=== PATIENT | female | born 1985 | race Hispanic/Latino ===

== ENCOUNTER 2018-03-01 13:35 | Outpatient (CLI) | payer MEDICARE, MEDICAID ==
--- NOTE | 2018-03-01 17:32 | ULT ---
ULTRASOUND LEFT UPPER ARM: 03/01/18 HISTORY: Pain. COMPARISON: None. FINDINGS: No abnormal mass or soft tissue collection seen in the upper arm. IMPRESSION: No abnormality seen in the upper arm. MRI could be obtained for more detailed interrogation of the up per arm. POS: [facility]
--- NOTE | 2018-03-01 17:40 | RAD ---
TWO VIEWS LEFT HUMERUS: DATE: 03/01/2018. HISTORY: Left arm pain. Injury of muscle. FINDINGS: No fracture or dislocation is seen involving the left humerus. No lytic or sclerotic lesions are see n. IMPRESSION: No acute osseous abnormality involving the left humerus. POS: [facility]
== END 2018-03-01 13:36 | disposition home or self-care (01) ==
LOC: BICULT 13:35
PROVIDERS: ATTEND Specialist
DX: M79.622 Pain in left upper arm (principal)
CPT/HCPCS: 76999

== ENCOUNTER 2018-10-13 03:21 | Emergency (ER) | payer MEDICARE, OTHER ==
[2018-10-13] MEDS ORDERED: Ketorolac Tromethamine 30 MG/ML VIAL ONE (03:32)
[2018-10-13 03:38] LABS: #Lymphocytes 2.3 thou/uL (1.20-3.40); #Monocytes 0.5 thou/uL (0.11-0.59); #Neutrophils 3.4 thou/uL (1.40-6.50); %Basophils 0.5 % (0.0-1.0); %Eosinophils 0.2 % (0.0-10.0); %Lymphocytes 37.3 % (21.0-51.0); %Monocytes 7.2 % (0.0-10.0); %Neutrophils 54.7 % (42.0-75.0); Hemoglobin 14.1 g/dL (12.0-16.0); Mean Corpuscular Hemoglobin 30.1 pg (27.0-31.0); Mean Corpuscular Volume 91.5 fL (78.0-98.0); Mean Platelet Volume 7.6 fL (7.4-10.4); Platelet Count 200 thou/uL (130-400); RBC Distribution Width 12.2 % (11.5-14.5); Red Blood Cell (RBC) Count 4.67 mill/uL (4.20-5.40); White Blood Cell (WBC) Count 6.2 thou/uL (4.8-10.8)
[2018-10-13 03:58] LABS: ALT (SGPT) 72 U/L (8-55); AST (SGOT) 79 U/L (5-34); Albumin 4.1 g/dL (3.5-5.0); Alkaline Phosphatase 88 U/L (40-150); Anion Gap 15 mmol/L (10-20); BUN (Urea Nitrogen) Less than 4 mg/dL (7.0-18.7); Bilirubin, Total 0.5 mg/dL (0.2-1.2); Calc. Creatinine Clearance 0 mL/min (70-130); Calcium 9.4 mg/dL (7.8-10.44); Carbon Dioxide 24 mmol/L (22-29); Chloride 100 mmol/L (98-107); Estimated GFR-MDRD 76; Globulin 2.8 g/dL (2.4-3.5); Glucose 227 mg/dL (70-105); Lipase 48 U/L (8-78); Potassium 3.6 mmol/L (3.5-5.1); Protein, Total 6.9 g/dL (6.0-8.3); Sodium 135 mmol/L (136-145)
--- NOTE | 2018-10-13 08:35 | RAD ---
PORTABLE CHEST: HISTORY: Chest pain. FINDINGS: Lungs are clear. Heart and mediastinum appear normal. Vasculature normal. IMPRESSION: Negative portable chest. POS: OFF
[2018-10-13] MEDS ORDERED: Iopamidol 370 76% 100 ML VIAL ONE (11:09)
--- NOTE | 2018-10-14 13:29 | CT ---
PRELIMINARY REPORT/[facility]/EMERGENTY AFTER-HOURS PROCEDURE CT Angiography Chest With Contrast EXAM DATE/TIME: 10/13/2018 4:09 AM CLINICAL HISTORY: 33 years old, female; Chest pain; Patient HX: Er 7. Elevated d-dimer; F32 presents to ED via EMS C/O chest tightness and L hand tightness TECHNIQUE: Imaging protocol: Axial computed tomographic angiography images of the chest with intravenous contras t using CT angiography protocol. 3D rendering: MIP reconstructed images were created and reviewed. COMPARISON: No relevant prior studies available. FINDINGS: Pulmonary arteries: Normal. No pulmonary emboli. Aorta: Normal. No aortic aneurysm. No aortic dissection. Lungs: Normal. No consolidation. No masses. Pleural space: Normal. No pneumothorax. No pleural effusion. Heart: Normal. No cardiomegaly. No pericardial effusion. Mediastinum: Esophagus is unremarkable. Liver: Hepatosplenomegaly. Lymph nodes: Unremarkable. No enlarged lymph nodes. Bones/joints: Unremarkable. No acute fracture. Soft tissues: Unremarkable. IMPRESSION: Hepatosplenomegaly. Thank you for allowing us to participate in the care of your patient. Dictated and Authenticated by: Huseyin Headley MD 10/13/2018 4:34 AM Central Time ([place] & [place]) FINAL REPORT CTA CHEST: No evidence of pulmonary embolus. No acute lung process. I am in agreement with the preliminary report. POS: OFF
== END 2018-10-13 05:11 | disposition home or self-care (01) ==
LOC: ERS 03:21
DX: M94.0 Chondrocostal junction syndrome [Tietze] (principal); R74.0 Nonspecific elevation of levels of transaminase and lactic acid dehydrogenase [LDH]
CPT/HCPCS: 36415; 71045; 71275; 80053; 83690; 84484; 85025; 85379; 93005; 96374; J1885; Q9967

== ENCOUNTER 2019-01-28 13:29 | Inpatient (IN) | payer MEDICARE, MEDICAID ==
[2019-01-28] MEDS ORDERED: Ondansetron PF 4 MG/2 ML Vial ONE (13:57)
[2019-01-28 14:29] LABS: #Lymphocytes 0.9 thou/uL (1.20-3.40); #Monocytes 0.8 thou/uL (0.11-0.59); #Neutrophils 8.6 thou/uL (1.40-6.50); %Basophils 0.1 % (0.0-1.0); %Eosinophils 0.1 % (0.0-10.0); %Lymphocytes 8.7 % (21.0-51.0); %Neutrophils 83.1 % (42.0-75.0); Hemoglobin 12.5 g/dL (12.0-16.0); Mean Corpuscular HGB CONC 32.3 g/dL (32.0-36.0); Mean Corpuscular Hemoglobin 28.7 pg (27.0-31.0); Mean Corpuscular Volume 88.9 fL (78.0-98.0); Mean Platelet Volume 8.6 fL (7.4-10.4); Platelet Count 153 thou/uL (130-400); RBC Distribution Width 12.9 % (11.5-14.5); Red Blood Cell (RBC) Count 4.36 mill/uL (4.20-5.40); White Blood Cell (WBC) Count 10.4 thou/uL (4.8-10.8)
[2019-01-28 14:41] LABS: Pregnancy Test - Urine (BHCG) Negative (Negative); Specific Gravity 1.035 (1.002-1.036)
[2019-01-28 14:42] LABS: Bacteria/HPF 1+ HPF (None Seen); Bilirubin Negative (Negative); Blood, Urine 1+ (Negative); Clarity Turbid (Clear); Glucose, Urine (Dipstick) Greater than 1000 mg/dL (Negative); Leukocyte 250 Leu/uL (Negative); Nitrite Negative (Negative); Pregu Control Background? CLEAR/WHITE (CLR/WHITE); Pregu Control Bar Appear? YES (CONTROL BAR); Protein, Urine (Dipstick) 200 mg/dL (Neg-Trace); Squamous Epithelial 21-50 HPF (0-3); Transitional Epithelial 0-3 HPF (None Seen); Urobilinogen 3 mg/dL (Less than 2); WBC/HPF 21-50 HPF (0-3)
[2019-01-28 14:52] LABS: ALT (SGPT) 22 U/L (8-55); AST (SGOT) 18 U/L (5-34); Albumin 3.9 g/dL (3.5-5.0); Alkaline Phosphatase 92 U/L (40-150); Anion Gap 18 mmol/L (10-20); BUN (Urea Nitrogen) 12 mg/dL (7.0-18.7); Bilirubin, Total 1.2 mg/dL (0.2-1.2); Calc. Creatinine Clearance 0 mL/min (70-130); Calcium 10.2 mg/dL (7.8-10.44); Carbon Dioxide 22 mmol/L (22-29); Chloride 88 mmol/L (98-107); Estimated GFR-MDRD 48; Globulin 3.7 g/dL (2.4-3.5); Glucose 488 mg/dL (70-105); Lipase 12 U/L (8-78); Potassium 3.5 mmol/L (3.5-5.1); Protein, Total 7.6 g/dL (6.0-8.3); Sodium 124 mmol/L (136-145)
[2019-01-28 14:57] LABS: BHCG - Serum Negative (NEGATIVE); Pregs Control Background? CLEAR/WHITE (CLR/WHITE); Pregs Control Bar Appear? YES (CONTROL BAR)
[2019-01-28] MEDS ORDERED: cefTRIAXone\\ROCEPHIN 2 GM VIAL ONE (14:57)
--- NOTE | 2019-01-28 15:10 | CT ---
EXAM: Abdomen and pelvic CT scan without contrast: HISTORY: Urinary tract infection abdominal pain COMPARISON: None FINDINGS: The visualized lung bases are clear. Liver: Hepatomegaly with fatty change.. Gallbladder:Status post cholecystectomy. No common duct or intrahepatic ductal dilatation. Pancreas:Unremarkable Spleen:Splenomegaly. Adrenal glands:Unremarkable. Kidneys:No renal calculus or acute obstruction. Fairly prominent left perirenal fat stranding without an obstructing calculus concerning for the poss ibility of acute pyelonephritis. No solid or cystic renal mass. No evidence for bowel obstruction. No CT evidence for acute appendicitis. The urinary bladder is unremarkable. Unremarkable No abscess, adenopathy, or abnormal fluid collection within the abdomen or pelvis. IMPRESSION: Left perirenal fat stranding evidence for acute pyelonephritis given lack of an obstructing calculus. Hepatosplenomegaly. Status post cholecystectomy.
[2019-01-28] MEDS ORDERED: Ibuprofen 200 MG TAB ONE (15:21)
[2019-01-28] MEDS ORDERED: Ondansetron PF 4 MG/2 ML Vial SLOW IVP PRN (17:47)
[2019-01-28] MEDS ORDERED: Dextrose 50% Abboject 50 ML SYRINGE IVP PRN (17:49)
[2019-01-28] MEDS ORDERED: Dextrose 5% in Water 1,000 ML IV PRN (17:49)
[2019-01-28] MEDS ORDERED: Insulin Glargine 30 UNITS in Pre-Filled Syringe SC SCH (18:00)
[2019-01-28 18:04] VITALS: BMI 36.3
[2019-01-28 18:31] LABS: Lactic Acid 1.7 mmol/L (0.5-2.2)
[2019-01-28] MEDS: Sodium Chloride 0.9% 1,000 ML IV SCH (18:52)
[2019-01-28] MEDS ORDERED: Melatonin 3 MG TAB PO PRN (20:38)
[2019-01-28] MEDS: Aripiprazole 15 MG TAB PO SCH (21:37)
[2019-01-28] MEDS: Phenazopyridine HCl 97.5 MG TABLET PO SCH (21:38)
[2019-01-28] MEDS: Insulin Regular 300 UNITS/3 ML VIAL SC PRN (21:38)
[2019-01-29] MEDS: Sodium Chloride 0.9% 1,000 ML IV SCH (02:46)
[2019-01-29] MEDS: Acetaminophen 325 MG TAB PO PRN ×2 (02:53→13:08)
[2019-01-29] MEDS: Insulin Regular 300 UNITS/3 ML VIAL SC PRN ×5 (05:53→22:25)
[2019-01-29 05:58] LABS: #Lymphocytes 0.8 thou/uL (1.20-3.40); #Monocytes 0.7 thou/uL (0.11-0.59); %Basophils 0.3 % (0.0-1.0); %Lymphocytes 10.6 % (21.0-51.0); %Monocytes 9.6 % (0.0-10.0); %Neutrophils 79.4 % (42.0-75.0); Hemoglobin 11.3 g/dL (12.0-16.0); Mean Corpuscular HGB CONC 34.1 g/dL (32.0-36.0); Mean Corpuscular Hemoglobin 29.9 pg (27.0-31.0); Mean Corpuscular Volume 87.7 fL (78.0-98.0); Mean Platelet Volume 8.5 fL (7.4-10.4); Platelet Count 124 thou/uL (130-400); RBC Distribution Width 12.6 % (11.5-14.5); White Blood Cell (WBC) Count 7.5 thou/uL (4.8-10.8)
[2019-01-29 06:01] LABS: Hemoglobin A1c 11.3 % (4.0-6.0)
[2019-01-29 06:21] LABS: Anion Gap 11 mmol/L (10-20); BUN (Urea Nitrogen) 9 mg/dL (7.0-18.7); Calc. Creatinine Clearance 128 mL/min (70-130); Calcium 9.2 mg/dL (7.8-10.44); Carbon Dioxide 24 mmol/L (22-29); Chloride 97 mmol/L (98-107); Estimated GFR-MDRD 79; Glucose 280 mg/dL (70-105); Potassium 3.1 mmol/L (3.5-5.1); Sodium 129 mmol/L (136-145)
[2019-01-29] MEDS ORDERED: Milk Of Magnesia 30 ML UDCUP PO SCH (09:30)
[2019-01-29] MEDS ORDERED: Bisacodyl 10 MG SUPP PR SCH (09:30)
--- NOTE | 2019-01-29 09:51 | HP ---
CHIEF COMPLAINT ON ADMISSION: Left-sided pyelonephritis. HISTORY OF PRESENT ILLNESS: The patient is a 33-year-old female, who had been into Dr. Peguero' office just a week prior, who decided not to mention that she had burning frequency with her urination or that she had left-sided back pain, and states she kept it to herself because her education level is about third grade and her emotional development is also by like a third grade. She just did not want to bother me or bother the examiner, so that she ended up going to [facility], where they wanted to admit her, but she did not want to go into the hospital there, so she came to the emergency room at [facility], where she was noted to have left flank pain, tenderness, tachycardia, UTI by diagnosis. CT of the abdomen confirms pyelonephritis on the left and a blood sugar over 400. She denies vomiting, but she has had some fever and chills. She had taken some Cipro from [facility]. She also has nausea. She rates her pain at an 8/10, has been getting worse which is why she came to [facility] ER. She has urinary frequency, urgency, dysuria, and recently when she began to vomit that is when she decided to come to the ER. She has vomited twice. PAST MEDICAL HISTORY: As mentioned above is borderline retardation, hard of hearing, diabetes mellitus type 2, dyslipidemia, hypothyroid, generally noncompliant with her medical care. She has a prior history of bipolar or schizophrenic features. Attention deficit disorder. PAST SURGICAL HISTORY: Significant for right leg surgery and cholecystectomy. PSYCHIATRIC HISTORY: As mentioned above, bipolar disorder with schizophrenia and significant anxiety disorder. ALLERGIES: THE PATIENT HAS NO KNOWN DRUG ALLERGIES. MEDICATIONS: On admission, 1. Klonopin 1 mg b.i.d. 2. Vyvanse 70 mg daily. 3. Tramadol 50 mg p.r.n. pain. 4. Abilify 5 mg at bedtime. 5. Sertraline 50 mg at bedtime. 6. Levothyroxine 150 mcg (probably not taking correctly). 7. Wellbutrin 150 mg daily. 8. Janumet b.i.d. 9. Crestor 20 mg at bedtime and most recently ciprofloxacin 500 b.i.d. REVIEW OF SYSTEMS: At the time of admission, positive for fever, chills, nausea, vomiting. HEENT: No sores or lesions or drainage from the eyes, ears, nose, or throat. CARDIOVASCULAR: Denies chest pain, but has palpitations and tachycardia. RESPIRATORY: Denies cough or dyspnea. GI: Positive for nausea and vomiting. Denies diarrhea. : Admits to urinary frequency, dysuria, hesitancy, but denies blood in urine or stool. MUSCULOSKELETAL: Denies any significant muscle or back pain. SKIN: No new rashes or lesions. NEUROLOGIC: No change in mentation, hypesthesia, anesthesia. HEMOLYTIC/LYMPH: No signs of significant swelling or bruising. PHYSICAL EXAMINATION: VITAL SIGNS: At the time of admission, blood pressure 109/68, pulse 109, respirations 18, temperature 100.0, pain scale 8/10 with 96% of O2 saturation on room air. GENERAL: This is an obese Latin-[place] female, alert, oriented, and cooperative. HEENT: Normocephalic, atraumatic. Pupils are equal, round, and reactive to light. Extraocular muscles are intact. TMs, nares, and pharynx are clear. NECK: Supple. Trachea midline. BREASTS: Deferred. HEART: Regular rate and rhythm, tachycardic. CHEST: Clear to auscultation. ABDOMEN: Soft, generally tender suprapubically. No mass appreciated or hepatosplenomegaly. : Deferred. EXTREMITIES: Without clubbing, cyanosis, or edema. SKIN: Without acute rashes or lesions. NEUROLOGIC: Cranial nerves are intact. Mental status is that of a third grader. Alert and cooperative. Sensory exam is intact. Gait and cerebellar function are normal. LABORATORY DATA: On admission, CT of the abdomen and pelvis shows left-sided perinephric swelling and stranding significant for pyelonephritis. WBC is 10.4, hemoglobin 12.5, hematocrit 38.8, platelets 153. Sodium 129, potassium 3.1, chloride 97, CO2 of 24, BUN 9, creatinine 0.84 with a GFR of 79, and glucose on arrival of over 400, now it has gone down to 357. Her lactate on admission was 4.2. test negative. TSH greater than 18. ASSESSMENT: 1. Left pyelonephritis. 2. Slb-eeckfyl-yaulflfls diabetes, uncontrolled due to noncompliance and infection. 3. Hyponatremia. 4. Hypothyroidism (medication probably not taken correctly). PLAN: Plan will be IV fluids, IV antibiotics, pain management with serial re-evaluation. We will also begin diabetic education. Her hemoglobin A1c is 11.2, indicative of her noncompliance as an outpatient. Job ID: [id number]
[2019-01-29] MEDS: Potassium Chloride 20 MEQ TAB PO SCH ×2 (10:24→21:31)
[2019-01-29] MEDS: Docusate 100 MG CAP PO SCH ×2 (10:24→21:31)
[2019-01-29] MEDS: Buprenorphine 8mg/Naloxone 2mg per 1 FILM SL SCH (10:25)
[2019-01-29] MEDS: Phenazopyridine HCl 97.5 MG TABLET PO SCH ×3 (10:29→21:31)
[2019-01-29] MEDS: NS 0.9% w/ 20 MEQ KCL 1,000 ML IV SCH ×2 (11:33→21:30)
[2019-01-29] MEDS ORDERED: Ibuprofen 200 MG TAB PO PRN (16:10)
[2019-01-29] MEDS: metFORMIN 500 MG TAB PO SCH (17:01)
[2019-01-29] MEDS: Aripiprazole 15 MG TAB PO SCH (21:31)
[2019-01-30] MEDS: NS 0.9% w/ 20 MEQ KCL 1,000 ML IV SCH ×3 (02:48→14:59)
[2019-01-30 04:23] LABS: #Monocytes 0.7 thou/uL (0.11-0.59); #Neutrophils 4.3 thou/uL (1.40-6.50); %Basophils 0.2 % (0.0-1.0); %Lymphocytes 16.7 % (21.0-51.0); %Monocytes 11.6 % (0.0-10.0); %Neutrophils 71.4 % (42.0-75.0); Hemoglobin 10.6 g/dL (12.0-16.0); Mean Corpuscular HGB CONC 31.2 g/dL (32.0-36.0); Mean Corpuscular Hemoglobin 27.9 pg (27.0-31.0); Mean Corpuscular Volume 89.6 fL (78.0-98.0); Mean Platelet Volume 8.6 fL (7.4-10.4); Platelet Count 134 thou/uL (130-400); RBC Distribution Width 12.7 % (11.5-14.5); White Blood Cell (WBC) Count 6.1 thou/uL (4.8-10.8)
[2019-01-30 04:45] LABS: Anion Gap 13 mmol/L (10-20); BUN (Urea Nitrogen) 9 mg/dL (7.0-18.7); Calc. Creatinine Clearance 142 mL/min (70-130); Calcium 8.7 mg/dL (7.8-10.44); Carbon Dioxide 20 mmol/L (22-29); Chloride 104 mmol/L (98-107); Estimated GFR-MDRD 88; Glucose 247 mg/dL (70-105); Potassium 3.7 mmol/L (3.5-5.1); Sodium 133 mmol/L (136-145)
[2019-01-30] MEDS: Levothyroxine 150 MCG TAB PO SCH (06:24)
[2019-01-30] MEDS: Insulin Regular 300 UNITS/3 ML VIAL SC PRN ×3 (06:29→18:01)
[2019-01-30] MEDS ORDERED: Bupropion 150 MG XL TAB PO SCH (09:00)
[2019-01-30] MEDS: metFORMIN 500 MG TAB PO SCH ×2 (09:22→17:49)
[2019-01-30] MEDS: Docusate 100 MG CAP PO SCH ×2 (09:23→21:56)
[2019-01-30] MEDS: Phenazopyridine HCl 97.5 MG TABLET PO SCH ×2 (09:23→14:59)
[2019-01-30] MEDS: Buprenorphine 8mg/Naloxone 2mg per 1 FILM SL SCH (09:24)
[2019-01-30] MEDS: Potassium Chloride 20 MEQ TAB PO SCH ×2 (10:32→21:56)
--- NOTE | 2019-01-30 14:49 | PQF ---
CLINICAL DOCUMENTATION IMPROVEMENT CLARIFICATION FORM: ICD-10 Updated PLEASE DO AN ADDENDUM TO THE PROGRESS NOTE WITH ANY DOCUMENTATION UPDATES OR ADDITIONS AND CARRY THROUGH TO DC SUMMARY. THANK YOU. DATE: 01/30/19 ATTN : DR. HAMPTON Please exercise your independent, professional judgment in responding to the clarification form. Clinical indicators are provided on the bottom of this form for your review Please check appropriate box(s) to clarify if the following diagnosis has been ruled in or ruled out: "SEPSIS" [ x ] Ruled in diagnosis [ x ] Continue to treat [ ] Resolved [ ] Ruled out diagnosis [ ] Cannot rule out diagnosis [ ] Other diagnosis [ ] Unable to determine In addition, please specify: Present on Admission (POA): [ x ] Yes [ ] No [ ] Unable to determine For continuity of documentation, please document condition throughout progress notes and discharge summary. Thank You. CLINICAL INDICATORS - SIGNS / SYMPTOMS / LABS ER NOTE: "SEPSIS" "FEVER, AND CHILLS" PULSE 109 RR 32 LACTIC ACID 01/28: 4.2 RISKS: UTI (ER NOTE) H/O DIABETES (ER NOTE) TREATMENT: IV VANCOMYCIN (ER) IV ROCEPHIN (ER) IV LEVAQUIN (01/28-PRESENT) IV FLUIDS (ER-PRESENT) BLOOD AND URINE CULTURES (01/28; 01/29) [employer] Winform Viewer (This form is maintained as a part of the permanent medical record) 2014 [employer]. All Rights Reserved [email or web address] Office: [phone] [facility]ITAL[facility]
[2019-01-30] MEDS: Aripiprazole 15 MG TAB PO SCH (21:56)
[2019-01-31] MEDS: Levothyroxine 150 MCG TAB PO SCH (07:06)
[2019-01-31] MEDS: NS 0.9% w/ 20 MEQ KCL 1,000 ML IV SCH (07:06)
[2019-01-31 07:59] VITALS: BP 104/66; TEMP 97.6
[2019-01-31] MEDS ORDERED: clonazePAM 0.5 MG TAB PO SCH (21:00)
== END 2019-01-31 11:50 | disposition home or self-care (01) | DRG 872 ==
LOC: ERS 13:29 → OBSVTOIN 16:37 → 2SW 16:37 → 3SE 01-29 13:08
PROVIDERS: ADMIT Specialist; ATTEND Specialist
DX: A41.9 Sepsis, unspecified organism (principal); N12 Tubulo-interstitial nephritis, not specified as acute or chronic; E87.1 Hypo-osmolality and hyponatremia; E11.9 Type 2 diabetes mellitus without complications; E78.5 Hyperlipidemia, unspecified; E03.9 Hypothyroidism, unspecified; F25.0 Schizoaffective disorder, bipolar type; Z79.899 Other long term (current) drug therapy; Z91.19 Patient's noncompliance with other medical treatment and regimen; Z79.84 Long term (current) use of oral hypoglycemic drugs
CPT/HCPCS: 36415; 36416; 74176; 80048; 80053; 81003; 81015; 81025; 83036; 83605; 83690; 84443; 84703; 85025; 87040; 87086; 90471; 90732; 93005; 96361; 96365; 96366; 96374; 96375; G0009; J0696; J1815; J1956; J2405; J3370; J3480

== ENCOUNTER 2019-11-01 13:29 | Outpatient (CLI) | payer MEDICARE, MEDICAID ==
--- NOTE | 2019-11-01 17:22 | CT ---
CT temporal bones noncontrast: 11/01/2019 HISTORY: 34-year-old female with bilateral sensorineural hearing loss. COMPARISON: None FINDINGS: There are 2 implanted metallic devices in the right parietal scalp, attached by screws to the right p arietal bone, causing streak artifact that obscures portions of the intracranial cavity. This does not obscure the temporal bone structures. Bilateral internal auditory canals are short in transverse length, and somewhat small in caliber, and this may be due to the fact that the bilateral petrous bones are symmetrically slightly dysplastic in orientation. The cochleae, vestibules, vestibular aqueducts, and semicircular canals, appear candido l, except that there is thinning of the bony coverings of the medial edge of the right superior semicircular canal and posterior edges of the bilateral posterior semicircular canals. There is also thinning of bone between the right hypotympanum and right jugular bulb. Otherwise bilat eral jugular bulbs, carotid canals, ossicles, facial nerve canals, and TMJs, have normal morphology. Bilateral mastoid air cells, mastoid antra, middle ear cavities, and external auditory ca nals, are clear. No erosion of scutum. Tegmen tympani intact bilaterally. IMPRESSION: 1.) 2 bone anchored metallic conductive hearing assist devices attached to outer table of right parie kristina bone. 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
== END 2019-11-01 13:30 | disposition home or self-care (01) ==
LOC: BICCT 13:29
PROVIDERS: ATTEND Physician Assistant
DX: H90.3 Sensorineural hearing loss, bilateral (principal)
CPT/HCPCS: 70480

== ENCOUNTER 2020-05-14 11:52 | Outpatient (CLI) | payer MEDICARE, OTHER ==
--- NOTE | 2020-05-14 12:36 | RAD ---
Exam: XR Knee Rt 4 View STANDARD HISTORY: Other reactive arthropathies, right knee. Patient states medial right knee pain COMPARISON: None FINDINGS: Tiny corticated osseous density is seen adjacent to the medial aspect medial tibial plateau which cou ld be related to prior injury in this region. No fracture, dislocation, or other osseous abnormality is seen involving the right knee. IMPRESSION: No acute osseous abnormality is identified.
== END 2020-05-14 11:53 | disposition home or self-care (01) ==
LOC: BICRAD 11:52
PROVIDERS: ATTEND Specialist
DX: M17.11 Unilateral primary osteoarthritis, right knee (principal)